=== PATIENT | female | born 1940 | race Caucasian/White ===

== ENCOUNTER → 2018-01-20 | Outpatient (CLI) | payer OTHER ==
[~2018-01-20] VITALS: Ht 160 cm; Wt 70.8 kg
[~2018-01-20] MED LIST: ALEVE220 MG PO; ALLEGRA ALLERGY60 MG PO; BIOTIN1000 MCG PO; COZAAR 50 MG TA50 M2 PO; CVS GLUCOSAMN-1 EACH PO; IBUPROFEN 800800 M1 PO; MEDROL DOSPAK21 TA1 PO; POLYETHYLENE G255 G1 PO; UNICOMPLEX M TA1 TA1 PO
--- NOTE | ~2018-01-20 | HPC ---
[facility] [place] [address] PAIN MANAGEMENT CONSULTATION Name: GUSTAVO GR Room #: REG [facility] Manjinder#: [id number] Admission: 01/20/18 Attend Phys: Cornelio Moon DO Discharge: Date of : 40 Report #: [id number] THIS REPORT FOR: //name// CC: Chris Moon DATE OF SERVICE: 01/20/2018 The patient is a very pleasant 77-year-old female seen in consultation 01/16/2018, diagnosed with symptomatic cervical radiculopathy, component of cervical spondylosis. We sought authorization for cervical epidural injection. She presents to pain clinic today for this procedure. She has ongoing pain, neck, right shoulder and arm. She wished to proceed with injection today. ASSESSMENT: Symptomatic cervical radiculopathy. PROCEDURE: Cervical epidural injection under fluoroscopy. PROCEDURE NOTE: After written and informed consent was obtained including risk of dural puncture, spinal cord trauma, paralysis and increased pain, the patient was taken to the fluoroscopy suite and placed in the prone position, with appropriate abdominal bolstering, neck was flexed, palms under the thighs. Skin was prepped with ChloraPrep. Sterile draping was applied. Skin wheal with 1% Xylocaine was raised. A 22-gauge 3-1/2 inch epidural Tuohy needle was placed via a midline approach at the C7-T1 interspace, advanced under biplanar fluoroscopy using continuous loss of resistance. With appropriate loss of resistance at the expected depth on lateral view, the glass loss of resistance syringe was disconnected. A low volume extension tubing was connected to the needle and a 5 mL syringe. Negative aspiration for cerebrospinal fluid or blood was noted. A 1 mL of Omnipaque was injected which showed spread within the epidural space on biplanar fluoroscopy. This was followed with 80 mg of triamcinolone plus 1 mL of 1.5% preservative Xylocaine. Needle was withdrawn to the interspinous ligament, 0.5 mL of Xylocaine was used to flush the needle. The needle was then completely withdrawn. The area was cleansed. Band-Aid was applied. The patient was allowed to move off the procedure table and ambulated to the recovery room, monitored for an appropriate period of time, discharged in good and stable condition. <ELECTRONICALLY SIGNED> By: Cornelio Moon DO 01/25/18 0725 1621 51 Cornelio Moon DO /nt
[2018-01-20 10:48] VITALS: BP 141/74
== END | disposition home or self-care (01) ==
LOC: PAIN 08:12
DX: M47.22 Other spondylosis with radiculopathy, cervical region (principal); G89.29 Other chronic pain; Z88.2 Allergy status to sulfonamides; Z88.8 Allergy status to other drugs, medicaments and biological substances; Z79.899 Other long term (current) drug therapy

== ENCOUNTER → 2018-02-10 | Outpatient (CLI) | payer OTHER ==
[~2018-02-10] VITALS: Ht 160 cm; Wt 70.0 kg
[~2018-02-10] MED LIST changes: +DOXYCYCLINE HYC20 MG PO
--- NOTE | ~2018-02-10 | HPC ---
[facility] [place] [address] PAIN MANAGEMENT CONSULTATION Name: GUSTAVO GR [facility] [id number] Admission: 02/10/18 Attend Phys: Cornelio Moon DO Discharge: Date of : 40 Report #: [id number] THIS REPORT FOR: //name// CC: Chris Moon DATE OF SERVICE: 02/10/2018 The patient is a 77-year-old female, prior seen in consultation on 01/16/2018. We did a cervical epidural injection on 01/20/2018. She returns to the Pain Clinic today noting that injection afforded no relief. She notes pain is problematic in the right neck, shoulder and arm. She notes pain is worse with moving her arm. She rates it a "10" on a VAS. She really does not have significant radicular symptoms. Pain is actually more in the neck. She notes symptoms have been present for about 2 months. Denies specific antecedent trauma and overuse. Gets a little relief with NSAID agents. PHYSICAL EXAMINATION: Shows 77-year-old female, BMI is 27.4 kg/m2. Vital signs stable as noted in the EMR. Flexion and extension of the cervical spine are full; however, rotation of the right exacerbates pain in the right neck and shoulder. She is tender over the middle to superior cervical facets. There are no trigger points noted in the splenius capitis or trapezius. Range of motion passively in the right shoulder is full. Abduction is limited actively. Deep tendon reflexes are symmetric for the biceps, triceps and brachioradialis. Hand grasp strength is symmetric. Lhermitte's is negative. ASSESSMENT: Symptomatic cervical spondylosis. The patient was prior given a cervical epidural injection for a component of radicular pain. Radicular pain is relatively quiescent, though neck and shoulder pain remain problematic. RECOMMENDATIONS: We elected to get x-rays of the shoulder and neck. These were accomplished. The right shoulder shows no fracture or dislocation. There really are no significant arthritic changes noted. Cervical spine notes greater anterolisthesis at C3-C4 and C4-C5, likely due to facet arthropathy. There is severe degenerative disk disease of the mid to lower cervical spine with prominent anterior osteophytes. There is diffuse facet arthropathy most prominent superiorly. ASSESSMENT: Symptomatic cervical spondylosis by clinical exam and history correlated with diagnostic findings. Component of cervical spondylosis relatively quiescent. RECOMMENDATION: After long discussion with the patient today about therapeutic option, we have elected to continue alternating Aleve and ibuprofen. She takes subtherapeutic dose of both. This does afford [place] [address] PAIN MANAGEMENT CONSULTATION Name: GUSTAVO GR Room #: REG [facility]ha[facility] Dunbar#: [id number] Admission: 02/10/18 Attend Phys: Cornelio Moon DO Discharge: Date of : 40 Report #: [id number] authorization for right 3-level cervical facet injection under fluoroscopy. Because her insurance is [employer], typically we will need to wait 30 days from the last injection, i.e. we will plan on seeing the patient 02/20/2018 or after. The patient was discharged in good and stable condition. She was seen from 9:10-9:35. X-rays obtained at 9:40. <ELECTRONICALLY SIGNED> By: Cornelio Moon DO 02/13/18 0710 1216 [id number] Cornelio Moon DO /nt
[2018-02-10 09:07] VITALS: BP 141/86
== END ==
LOC: PAIN 06:44 → RAD 06:44 → PAIN 10:50
DX: M47.892 Other spondylosis, cervical region (principal); M50.321 Other cervical disc degeneration at C4-C5 level

== ENCOUNTER → 2018-02-17 | Outpatient (CLI) | payer OTHER ==
[~2018-02-17] VITALS: Ht 160 cm; Wt 71.2 kg
--- NOTE | ~2018-02-17 | HPC ---
[address] [place] [address] PAIN MANAGEMENT CONSULTATION Name: GUSTAVO GR Room #: REG Keshawn Dunbar#: [id number] Admission: 02/17/18 Attend Phys: Cornelio Moon DO Discharge: Date of : 40 Report #: [id number] THIS REPORT FOR: //name// CC: Chris Moon DATE OF SERVICE: 02/17/2018 The patient is a 77-year-old female, prior seen for symptomatic cervical radiculopathy, last seen in pain clinic 02/10/2018. She prior had cervical epidural injection on 01/20/2018 with nominal improvement of neck pain, improvement of some right radicular pain. We had obtained x-ray of the right shoulder, which was unremarkable and right x-ray of the neck, which did show retrolisthesis of C3-C4 and C4-C5 with facet arthropathy. Sought authorization for right-sided 3-level facet joint injection. The patient returns to pain clinic today noting pain in the neck exacerbated with side bending and rotation. Negative Lhermitte's though she does have some ongoing radicular symptoms in the right arm with paresthesia into the fingers. ASSESSMENT: 1. Symptomatic cervical spondylosis without myelopathy. 2. Cervical radiculopathy. RECOMMENDATION: Proceed with right C2-C3, C3-C4 and C4-C5 facet joint injection under fluoroscopy today, follow up in 2 weeks for evaluation. If she gets short term relief with the facet joint injection, but no long-term relief, we will consider medial branch dorsal rami diagnostic blocks. If, however, she gets good relief of neck pain, but still has component of radicular pain, we will consider a repeat cervical epidural injection at that time. ASSESSMENT: Symptomatic cervical spondylosis without myelopathy. PROCEDURE: Right C2-C3, C3-C4 and C4-C5 cervical facet joint injection under fluoroscopy. PROCEDURE NOTE: After written informed consent was obtained, the patient was taken to the fluoroscopy suite and placed in prone position. After sterile prep and drape, skin wheal was raised. A 22-gauge stylet needle was placed to contact posterior aspect of the right C2-C3, C3-C4, and C4-C5 facet joints. AP projection showed needle in the middle of the lateral mass. Lateral projection showed needle approaching posterior aspect of the facet joints. Negative aspiration was accomplished. A 2.7 mg of Decadron plus 1 mL of 0.5% preservative-free bupivacaine was injected all 3 needles. All [address] [address] PAIN MANAGEMENT CONSULTATION Name: GUSTAVO GR Room #: REG [facility]#: [id number] Admission: 02/17/18 Attend Phys: Cornelio Moon DO Discharge: Date of : 40 Report #: [id number] removed, area was cleansed, Band-Aids applied. The patient monitored for an appropriate period of time, discharged in good and stable condition. <ELECTRONICALLY SIGNED> By: Cornelio Moon DO 02/20/18 0710 0923 1920 Cornelio Moon DO /nt
[2018-02-17 08:52] VITALS: BP 155/88
== END | disposition home or self-care (01) ==
LOC: PAIN 06:56
DX: M47.812 Spondylosis without myelopathy or radiculopathy, cervical region (principal); G89.29 Other chronic pain; Z88.2 Allergy status to sulfonamides; Z88.8 Allergy status to other drugs, medicaments and biological substances; Z79.899 Other long term (current) drug therapy; Z98.890 Other specified postprocedural states; Z88.6 Allergy status to analgesic agent

== ENCOUNTER → 2018-03-03 | Outpatient (CLI) | payer OTHER ==
[~2018-03-03] VITALS: Ht 160 cm; Wt 71.0 kg
--- NOTE | ~2018-03-03 | HPC ---
[facility] [place] [place] [address] PAIN MANAGEMENT CONSULTATION Name: GUSTAVO GR [facility] [id number] Admission: 03/03/18 Attend Phys: Cornelio Moon DO Discharge: Date of : 40 Report #: [id number] THIS REPORT FOR: //name// CC: Chris Moon DATE OF SERVICE: 03/03/2018 The patient is a 77-year-old female, prior seen in the pain clinic 02/17/2018. We did right C2-C3, C3-C4 and C4-C5 cervical facet joint injections under fluoroscopy. Prior in December, we had done cervical epidural injection with nominal efficacy. Returns to pain clinic today. Had a moderately prolonged visit. The patient notes good incremental relief following the right cervical facets, the patient reports 50% for 2 weeks and actually ongoing relief. She does, however, still continue to rate the pain a 7 on a VAS. Pain is in the right neck and shoulder, some radiation into the elbow. PHYSICAL EXAMINATION: A 77-year-old female, BMI is 27.7 kilograms per meter squared. Vital signs stable as noted in the EMR. Very tender over the right superior cervical facets. Slight decreased cervical range of motion, particularly to the right. Neurologically, she is intact. Upper extremity strength is symmetric. Deep tendon reflexes with biceps, triceps, brachioradialis are symmetric 1-2/4. Tinel's is negative. We reviewed diagnostic findings including a study of cervical spine from 02/10/2018 noting grade 1 anterolisthesis of C3 on C4, C4 on C5 due to facet arthropathy. ASSESSMENT: Symptomatic cervical spondylosis without myelopathy by clinical exam and history. RECOMMENDATION: 1. Continue ibuprofen 800 mg as needed for pain. 2. Repeat cervical facet joint injections today. 3. Follow up simply as needed. ASSESSMENT: Symptomatic cervical spondylosis by clinical exam and history. PROCEDURE: Right C2-C3, C3-C4, C4-C5 cervical facet joint injections under fluoroscopy. PROCEDURE NOTE: After written informed consent was obtained, the patient was taken to the fluoroscopy suite and placed in prone position. After sterile prep and drape, skin wheal was raised. A 22-gauge stylet needle was placed to [address] [address] PAIN MANAGEMENT CONSULTATION Name: GUSTAVO GR Room #: REG [facility].#: [id number] Admission: 03/03/18 Attend Phys: Cornelio Moon DO Discharge: Date of : 40 Report #: [id number] the posterior aspect of the right C2-C3, right C3-C4 and right C4-C5 cervical facets. AP and lateral projections showed good needle placement. Negative aspiration was accomplished. A 2 mg of Decadron plus 1 mL of 0.5% preservative-free bupivacaine was injected at all 3 sites. All 3 needles removed, area was cleansed, Band-Aids applied. The patient monitored for appropriate time. Discharged in good and stable condition. Fluoroscopy time was under 20 seconds. <ELECTRONICALLY SIGNED> By: Cornelio Moon DO 03/06/18 0659 1203 [id number] Cornelio Moon DO /nt
[2018-03-03 09:21] VITALS: BP 143/71
== END | disposition home or self-care (01) ==
LOC: PAIN 06:51
DX: M47.812 Spondylosis without myelopathy or radiculopathy, cervical region (principal); G89.29 Other chronic pain; Z98.890 Other specified postprocedural states; Z87.891 Personal history of nicotine dependence; Z88.8 Allergy status to other drugs, medicaments and biological substances; Z79.899 Other long term (current) drug therapy

== ENCOUNTER → 2018-07-07 | Outpatient (CLI) | payer OTHER | LOC: RAD 05:57 | DX: Z12.31 Encounter for screening mammogram for malignant neoplasm of breast (principal) ==

== ENCOUNTER 2018-12-27 17:29 | Emergency (ER) | payer OTHER ==
[~2018-12-27] VITALS: Ht 160 cm; Wt 63.5 kg
[2018-12-27] MEDS ORDERED: MEGA BIOTIN10000 MCG (17:50)
[2018-12-27] MEDS ORDERED: VITAMINC500 PO (17:51)
[2018-12-27] MEDS ORDERED: GLUCOSAMINE-CH1 EACH PO (17:53)
[2018-12-27 17:56] LABS: URINE BILIRUBIN NEGATIVE (Negative); URINE BLOOD 2+ (Negative); URINE CLARITY SL CLOUDY; URINE COLOR YELLOW; URINE GLUCOSE-RANDOM* NEGATIVE (Negative); URINE KETONES NEGATIVE (Negative); URINE NITRITE-REFLEX NEGATIVE (Negative); URINE PROTEIN (DIPSTICK) NEGATIVE (Negative); URINE UROBILINOGEN 0.2 E.U./dl (0.2-1.0)
[2018-12-27 17:57] LABS: URINE LEUKOCYTES-REFLEX 2+ (Negative)
[2018-12-27 18:09] LABS: CASTS None Seen /LPF (None Seen); CRYSTALS None Seen /LPF (None Seen); SQUAMOUS 0-3 Few /LPF (0-3); URINE RBC 0-2 Rare /HPF (0-2); URINE WBC-REFLEX >25 Many /HPF (0-5)
[2018-12-27 18:25] LABS: ABSOLUTE NEUTROPHILS 7.8 thou/uL (1.4-8.2); BASOPHILS 0.2 % (0.0-2.0); EOSINOPHILS 0.9 % (0.0-3.0); HEMATOCRIT 35.6 % (37.0-47.0); HEMOGLOBIN 12.2 gm/dL (12.0-15.0); LYMPHOCYTES 4.3 % (24.0-44.0); MCH 30.8 pg (26.0-34.0); MCHC 34.4 g/dL (28.0-37.0); MCV 89.7 fL (80.0-100.0); PLATELET COUNT 207 thou/uL (150-400); POLYS 93.6 % (36.0-66.0); RBC 3.97 mil/uL (4.20-5.00); RDW 12.8 % (10.5-14.5); WBC 8.3 thou/uL (4.0-11.0)
[2018-12-27 18:32] LABS: CALCIUM 9.4 mg/dL (8.5-10.1); POTASSIUM 3.7 mmol/L (3.5-5.1)
[2018-12-27 18:38] LABS: ALBUMIN 3.5 g/dL (3.4-5.0); DIRECT BILIRUBIN 0.1 mg/dL (<0.1-0.3); TOTAL BILIRUBIN 0.5 mg/dL (<0.1-1.0)
[2018-12-27 19:59] VITALS: BP 116/66
[2018-12-27] MEDS ORDERED: KEFLEX500 M1 PO (20:14)
== END 2018-12-27 20:21 | disposition home or self-care (01) ==
LOC: ER 17:29
PROVIDERS: Emergency Medicine
DX: N39.0 Urinary tract infection, site not specified (principal); Z88.8 Allergy status to other drugs, medicaments and biological substances; Z88.5 Allergy status to narcotic agent; Z90.49 Acquired absence of other specified parts of digestive tract; Z90.710 Acquired absence of both cervix and uterus

== ENCOUNTER → 2019-08-01 | Outpatient (CLI) | payer OTHER ==
[~2019-08-01] MED LIST changes: +GLUCOSAMINE-CH1 EACH PO; +KEFLEX500 M1 PO; +MEGA BIOTIN10000 MCG; +VITAMINC500 PO
== END ==
LOC: RAD 07-18 10:09
DX: Z12.31 Encounter for screening mammogram for malignant neoplasm of breast (principal)

== ENCOUNTER → 2020-08-25 | Outpatient (CLI) | payer OTHER | LOC: BC 08:38 | PROVIDERS: ATTEND Family Medicine | DX: Z12.31 Encounter for screening mammogram for malignant neoplasm of breast (principal) ==

== ENCOUNTER → 2020-10-24 | Outpatient (CLI) | payer OTHER | LOC: SJCVC 13:03 | PROVIDERS: ATTEND Internal Medicine Cardiovascular Disease | DX: R94.31 Abnormal electrocardiogram [ECG] [EKG] (principal); E78.00 Pure hypercholesterolemia, unspecified; I10 Essential (primary) hypertension; Z82.49 Family history of ischemic heart disease and other diseases of the circulatory system; Z79.899 Other long term (current) drug therapy; Z87.891 Personal history of nicotine dependence; Z88.5 Allergy status to narcotic agent; Z88.8 Allergy status to other drugs, medicaments and biological substances ==

== ENCOUNTER → 2021-06-19 | Outpatient (CLI) | payer OTHER | LOC: SJCVC 10:26 | PROVIDERS: ATTEND Internal Medicine Cardiovascular Disease | DX: I10 Essential (primary) hypertension (principal); E78.00 Pure hypercholesterolemia, unspecified; K21.9 Gastro-esophageal reflux disease without esophagitis; R09.89 Other specified symptoms and signs involving the circulatory and respiratory systems; Z82.49 Family history of ischemic heart disease and other diseases of the circulatory system; Z87.891 Personal history of nicotine dependence; Z72.89 Other problems related to lifestyle; Z88.1 Allergy status to other antibiotic agents; Z88.8 Allergy status to other drugs, medicaments and biological substances; Z79.899 Other long term (current) drug therapy ==

== ENCOUNTER → 2021-09-18 | Outpatient (CLI) | payer OTHER | LOC: BC 08-26 12:21 | PROVIDERS: ATTEND Family Medicine | DX: Z12.31 Encounter for screening mammogram for malignant neoplasm of breast (principal) ==